=== PATIENT | female | born 1995 | race Caucasian/White ===

== ENCOUNTER 2016-09-22 11:59 | Emergency (ER) | payer OTHER ==
[~2016-09-22] VITALS: Ht 175.3 cm; Wt 72.6 kg
--- NOTE | 2016-09-22 13:56 | ED NECK/BACK PAIN COMPLAINT ---
History of Present Illness General Chief Complaint: Low Back Pain/Injury Stated Complaint: LOWER BACK PAIN Source: patient, family Exam Limitations: no limitations Vital Signs & Intake/Output Vital Signs & Intake/Output Vital Signs Date Time Temp Pulse Resp B/P Pulse O2 O2 Flow FiO2 Ox Delivery Rate 09/22 1556 98.6 85 18 112/84 98 Room Air 09/22 1236 98.8 74 20 118/70 99 Room Air Allergies Coded Allergies: NO KNOWN ALLERGIES (09/22/16) Reconcile Medications Cyclobenzaprine HCl 10 MG TABLET 1 TAB PO TID muscle relaxant may cause drowsiness Methylprednisolone. (Medrol) 4 MG TAB.DS.PK 1 DP PO AD INFLAMMATION Triage Note: RECEIVED 21 YO FEMALE C/O MID LOWER BACK PAIN RADIATING DOWN RIGHT HIP AND LEG, STARTED LAST NIGHT. SOME NUMBNESS TO RIGHT LEG. Triage Nurses Notes Reviewed? yes : No Patient currently breastfeeds: No HPI: Patient is a 21-year-old female presents complaining of severe low back pain. Pain is a pinching/sharp pain began at approximately 10 PM yesterday evening she patient reports she stood up and sat down and felt mild pain. Patient awoke this morning with severe pain. Pain radiates into her buttocks and bilateral lower extremities. Pain is moderate at rest severe with movement. Patient has not taken any medication for her symptoms prior to arrival. Patient reports mild paresthesias in her low back. Denies numbness, fall, incontinence. Past History Travel History Traveled to [place] past 21 day No Medical History Any Pertinent Medical History? none Neurological: NONE EENT: NONE Cardiovascular: NONE Respiratory: NONE Gastrointestinal: NONE Hepatic: NONE Renal: NONE Musculoskeletal: NONE Psychiatric: NONE Endocrine: NONE Blood Disorders: NONE Cancer(s): NONE TRANSIT MECHANIC/Reproductive: NONE Surgical History Surgical History: non-contributory Psychosocial History What is your primary language Irish Tobacco Use: Never used Family History Hx Contributory? No Review of Systems Review of Systems Constitutional: Denies: chills, fever. Respiratory: Denies: short of breath. Cardiovascular: Denies: chest pain. Gastrointestinal/Abdominal: Denies: abdominal pain. Musculoskeletal: Reports: see HPI. Skin: Reports: no symptoms. Neurological/Psychological: Reports: paresthesia. Denies: headache, numbness. Physical Exam Physical Exam General Appearance: well developed/nourished, alert, awake Head: atraumatic, normal appearance Eyes: Bilateral: normal appearance, PERRL, EOMI. Ears, Nose, Throat, Mouth: hearing grossly normal, moist mucous membrane Neck: normal inspection, supple, full range of motion Respiratory: no respiratory distress Peripheral Pulses: 2+ dorsalis pedis (R), 2+ dorsalis pedis (L) Gastrointestinal: soft, non-tender Back: normal inspection, normal range of motion, NO MIDLINE OR PARASPINAL TENDERNESS Extremities: non-tender, normal range of motion Straight Leg Raising: Right: Negative. Left: Negative. DTR: Patellar: 2: L4 Right, L4 Left. Achilles: 2: S1 Right, S1 Left. Neurologic/Psych: no motor/sensory deficits, awake, alert, oriented x 3, ANTALGIC GAIT Progress Differential Diagnosis: cauda equina syn, herniated disc, myofascial strain, pyelo/UTI, T/L spine injury, ureterolithiasis Plan of Care: Orders Procedure Date/time Status URINE 09/22 1240 Complete URINALYSIS 09/22 1240 Complete Laboratory Tests 09/22/16 1413: Urine Color YEL, Urine Clarity CLEAR, Urine pH 7.0, Ur Specific [place] 1.010, Urine Protein NEG, Urine Ketones NEG, Urine Nitrite NEG, Urine Bilirubin NEG, Urine Urobilinogen 0.2, Ur Leukocyte Esterase NEG, Ur Microscopic SEDIMENT EXAMINED, Urine RBC RARE, Ur Epithelial Cells FEW, Urine Hemoglobin TRACE-INTACT , Urine Glucose NEG, Urine Test NEGATIVE No red flags on exam. Discussed results of urinalysis and x-ray with patient and her father. Patient appears stable for discharge with conservative management. Provided patient with information for primary care follow-up. (SERENA NOONAN,ETHAN) Diagnostic Imaging: Viewed by Me: Radiology Read. Discussed w/RAD: Radiology Read. Radiology Impression: PATIENT: NHI ROSE PRESENT AGE: 21 PATIENT ACCOUNT NO: [id number] : 96 LOCATION: [facility] ORDERING PHYSICIAN: ETHAN NOONAN SERVICE DATE: 09/22/16-8935 EXAM TYPE: RAD - XRY-LUMBOSACRAL SPINE 4 VIEWS EXAMINATION: XR LUMBOSACRAL SPINE CLINICAL INFORMATION: Severe midline lumbar pain COMPARISON: None. TECHNIQUE: 4 views of the lumbosacral spine obtained. FINDINGS: Mild left convex curvature of the lumbar spine. Vertebral body and disc height is maintained. No evidence of spondylolysis or spondylolisthesis. IMPRESSION: Mild left convex curvature of the lumbar spine. No acute osseous abnormalities are demonstrated. DICTATED BY: LYNN WHITING MD DATE/TIME DICTATED:09/22/161508 STEEL HEATER:MICHAEL DATE/TIME TRANSCRIBED:09/22/161508 CONFIDENTIAL, DO NOT COPY WITHOUT APPROPRIATE AUTHORIZATION. <Electronically signed in Other Vendor System> SIGNED BY: LYNN WHITING MD 09/22/16 1514 Departure Departure Time of Disposition: 1527 Disposition: HOME OR SELF CARE Condition: Stable Clinical Impression Primary Impression: Sciatica Qualifiers: Laterality: unspecified laterality Qualified Code: M54.30 - Sciatica, unspecified side Referrals: AUGIE JESSICA MD PATIENT HAS NO PRIMARY CARE DR (PCP/Family) Additional Instructions: Rest, alternate ice and heat to the affected area for 20 minutes 4-5 times a day. Follow-up with the primary care provider listed in your discharge paperwork to establish a doctor in for further evaluation. Return to the emergency department if incontinence, increasing weakness, numbness in your rectum, or worsening of symptoms. Departure Forms: Customer Survey General Discharge Information Prescriptions: Current Visit Scripts Methylprednisolone. (Medrol) 1 DP PO AD #1 DP Cyclobenzaprine HCl 1 TAB PO TID #30 TAB may cause drowsiness
--- NOTE | 2016-09-22 15:14 | RADIOLOGY REPORT ---
EXAMINATION: XR LUMBOSACRAL SPINE CLINICAL INFORMATION: Severe midline lumbar pain COMPARISON: None. TECHNIQUE: 4 views of the lumbosacral spine obtained. FINDINGS: Mild left convex curvature of the lumbar spine. Vertebral body and disc height is maintained. No evidence of spondylolysis or spondylolisthesis. IMPRESSION: Mild left convex curvature of the lumbar spine. No acute osseous abnormalities are demonstrated.
[2016-09-22] MEDS ORDERED: CYCLOBENZAPRINE10 M1 PO (15:30)
[2016-09-22] MEDS ORDERED: MEDROL4 M2 PO (15:30)
[2016-09-22 15:56] VITALS: BP 112/84
== END 2016-09-22 15:56 ==
LOC: ERH 11:59
DX: M54.31 Sciatica, right side (principal); M54.32 Sciatica, left side
CPT/HCPCS: 72110; 81001; 81025